=== PATIENT | female | born 1945 | race Caucasian/White ===

== ENCOUNTER → 2021-10-28 | Outpatient (CLI) | payer MEDICARE | LOC: RAD 12:35 | PROVIDERS: ATTEND Nurse Practitioner Adult Health | DX: M25.551 Pain in right hip (principal) ==

== ENCOUNTER → 2025-02-21 | Outpatient (REF) | payer MEDICARE | LOC: RAD 12:03 | PROVIDERS: ATTEND Nurse Practitioner Primary Care | DX: R22.2 Localized swelling, mass and lump, trunk (principal) | CPT/HCPCS: 93971 ==